=== PATIENT | male | born 1975 | race Caucasian/White ===

== ENCOUNTER 2018-03-23 10:30 | Outpatient (RCR) | payer BC, SELFPAY ==
--- NOTE | 2018-02-26 09:00 | IE_ITS ---
Date: February 26, 2018 Referring: Williams Vaughn M.D. M.D. Diagnosis: S/p right 4th and 5th CMC fusion w/bone graft SUBJECTIVE: History of Present Illness: The patient injured his 4th and 5th metacarpal when pushing a toolbox. He slipped, jamming his hand and slamming the distal aspect of the 5th metacarpal MCP joint into a metal frame. He went on to perform activities with a sledge hammer a week or two later. He miss hit with the hammer, smashing his hand into some machinery. 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 Saw Dr. Vaughn and underwent surgery on February 06 for 4th and 5th metacarpal fusion to the hamate using a wide plate with 3 screws into the hamate and 3 screws into each metacarpal. Pain Rating: At time of I.E. 3/10 and at its worst 8/10. He is not taking any pain medication for this. Pain Location: Dorsal lateral aspect of the wrist into the dorsum of the hand. Also, complains of cleveland protuberance through the palm from the 4th metacarpal , which he feels is being forced into the palm. 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 Current Level of Function: Out of work. No gripping, pushing or pulling, per M.D. orders. He is referred to P.T., primarily for ROM of the wrist and hand, as well as for swelling reduction and scar massage. Request is for gentle MCP ROM as well along with wrist and finger IP joint ROM. Social: Lives in a multi level home with his and their 3 children. Comorbidities: History of multiple left LE surgeries, otherwise unremarkable, with the exception of asthma. Falls in the last year: __[x]__ No Quality of Life: __x__ Good Standardized Measures: DASH score: __65%__ OBJECTIVE: Posture: Mesomorphic body build with mildly protracted scapulae. Observation: (behavior, atrophy, skin color, etc.) Incisions are well closed. He has a small incision over the right listers tubercle, donor site for the bone graft, as well as along the dorsum of the hand between the 4th and 5th metacarpals. No drainage. Mild scar restriction. Swelling: Volumetric measurements were taken: 530 ml left 550 ml right Noted swelling along the dorsum of the hand. The patient does have an ulnar gutter splint crossing the wrist joint, maintaining some flexion of the MCP joint. ROM: Left wrist and hand ROM is WNL through all planes. Right wrist flexion 60 , extension 50 , ulnar deviation 25 , radial deviation 10 , supination and pronation are WNL. Digits #2 through #4 MCP, PIP and DIP AROM is WNL. 5th digit MCP flexion 50 and 55 AA with pulling pain through the dorsum of the hand along the 4th and 5th metacarpal. Strength: 5/5 glenohumeral joint strength for flexion, abduction, internal and external rotation, biceps and triceps 5/5. Mortgage Processor strength was not assessed. Wrist flexion and extension 4/5 with mild pain with resisted wrist extension. Ulnar and radial deviation were not tested. Neuro: Sensation is intact to light touch throughout the dorsum of the hand. Treatment: IE: 53940 x1 Therapeutic procedure: 98009 x1 Patient Education: I.E. Instructions in a HEP of tendon gliding, wrist flexion and extension, AROM, radial and ulnar deviation and some palm hollowing exercises. Direct treatment time: 60 min. from 3:00 til 4:00 P.M. ASSESSMENT: Patient is a 42-year-old male, referred for PT services with the diagnosis of S/ p 4th & 5th metacarpal fusion. Patient presents with clinical signs and symptoms consistent with this diagnosis, as demonstrated by the following impairment level findings: impaired joint mobility, motor function, muscle performance and ROM associated with cleveland surgery Impairments are contributing to the following functional limitations: as listed above Patient is assessed as: __x__ Low 50611 ____ Moderate 08434 ____ High 85471 complexity, based on the following: History: (list): See comorbidities and social history. Examination: (list): See above for functional limitations and impairments. Presentation: Stable and uncomplicated Decision-Making: Low complexity ____ Patient requires skilled PT intervention to remediate the above functional limitations to return to: __x__ Return to full functional mobility Prognosis: ____ Excellent __x__ Good ____ Fair ____ Poor STG: __6__ weeks. 1) increase wrist flexion and extension to 70 actively 2) improve 5th digit MCP flexion on the right to greater than 70 actively 3) patient independent in HEP 4) decrease pain by 50% LTG: __12__ weeks. 1) return to work without restrictions 2) return to full, painfree functional mobility with use of right UE PLAN: Patient to be seen 2x per week, for 12 weeks, adjusting frequency of visits per patient symptoms and response to treatment. Treatment to include: Manual therapy - 27190 - scar tissue mobs, radial carpal joint mobs, A/ AAROM for wrist and hand through all planes Therapeutic exercise - 65301 - wrist and hand strengthening. Will progress with therapeutic exercises once we get approval by the surgeon. He sees him x2 weeks. The patient agrees with my POC, and is to be discharged when the above goals have been met. Thank you for this referral. Please do not hesitate to contact me with any questions or concerns regarding this patient's plan of care.
--- NOTE | 2018-03-09 14:11 | PTTR_ITS ---
DATE: 03/09/18 SUBJECTIVE: Chad states he sees the PA at his doctor's office for a recheck and xray of his hand fusion 4th/5th MCP jts. Continues to wear his ulnar sided splint. Has been working on his HEP. OBJECTIVE: Manual therapy: (05639z3). A/AAROM to the right wrist. Did perform dorsal and volar glides at a Grade 2 and 3 of the proximal radial carpal jt, as well as mobilization of the MCPs 2 through 5 at a Grade 2. Objective measurements were taken and included on an M.D. note. This is to be scanned to patient's EMR. Direct treatment time: 2:00 til 2:30 P.M. Plan: Follow up with Chad after his Ortho appointment later this week. We will progress him accordingly. MM/gc
--- NOTE | 2018-03-13 08:32 | PTTR_ITS ---
DATE: 03/13/18 OBJECTIVE: Manual therapy: (79384u1). Today Chad rec'd brief Grade 1 dorsal and volar glides to the right wrist. This was followed by PROM of the 4th and 5th digits into flexion, dorsal and volar glides of the 4th and 5th proximal inter phalangeal joints. PROM into 4th and 5th flexion and extension was also performed. Therapeutic procedures (85033z4). * x See flow sheet: gripping with foam cube, scapular rowing, prone shoulder strengthening in the planes of scaption, abduction and extension, all anti gravity without weight added. AROM of the right wrist into flexion and extension, all anti gravity. At the conclusion of this we applied ice to the right wrist x10 min. at no charge. * I did assess pinch and institutional nutrition consultant strength today; * 3 tests were performed for each, taking the average: * left pinch 18# right pinch 19# left institutional nutrition consultant 85# average right institutional nutrition consultant 71.6# average Chad felt good upon completion of today's program without significant increase in pain. Will monitor his response seeing him 1x per week leading up to his next M.D. appointment. Direct treatment time: 9:00 til 9:30 A.M. RF/sara
--- NOTE | 2018-03-20 09:00 | NT_ITS ---
03/20/18 Canc his appt RF/dl
--- NOTE | 2018-03-23 10:30 | PTTR_ITS ---
DATE: 03/23/18 Manual therapy: (74308x2). Today Chad received PROM of R hand working distal interphalangeal joint and proximal interphalangeal joint into flexion/ extension with more emphasis into flexion, passive range of wrist motion into flexion/extension, dorsal and ventral glides of R wrist grade 1. Therapeutic procedures (76190p0). Performed Therex consisting of wrist flexion/ extension with no load, all anti-gravity, active flexion/extension of digits 2- 5 and finally spent approximately 5 mins working fine motor tasks with Gemfire board performing gripping with thumb and digits 2-5. Ended treatment with cryotherapy to hand/wrist for 10 mins. Chad will be out the remainder of this week as he is bringing his son to college. He will reschedule with Richard Currie DPT prior to his appt with . Direct treatment time: 30 mins Total treatment time: 30 mins RF/dl
== END 2018-03-27 23:59 | disposition home or self-care (01) ==
LOC: PT 10:30
PROVIDERS: PCP Family Medicine; Referring Provider Nurse Practitioner Family; Visit Provider Nurse Practitioner Family
DX: S62.304D Unspecified fracture of fourth metacarpal bone, right hand, subsequent encounter for fracture with routine healing (principal); S62.306D Unspecified fracture of fifth metacarpal bone, right hand, subsequent encounter for fracture with routine healing
CPT/HCPCS: 97110; 97140; 97161

== ENCOUNTER 2019-09-27 20:10 | Outpatient (REF) | payer BC, SELFPAY ==
[2019-09-27 20:38] LABS: BUN 9 mg/dL (7-18); CREATININE 0.98 mg/dL (0.70-1.30); Calcium 8.8 mg/dL (8.5-10.1); Chloride 97 mmol/L (98-107); Glucose 91 mg/dL (74-106); Potassium 3.2 mmol/L (3.5-5.1); Sodium 140 mmol/L (136-145)
[2019-09-27 20:49] LABS: Abs Immature Grans 0.07 k/cumm (0.0-0.09); Absolute Basophil Count 0.05 k/cumm (0.0-0.2); Absolute Eosinophil Count 0.28 k/cumm (0.0-0.7); Absolute Lymphocyte Count 1.74 k/cumm (1.2-3.4); Absolute Monocyte Count 1.19 k/cumm (0.11-0.7); Absolute Neutrophil Count 2.66 k/cumm (1.2-6.7); Basophils % 0.8; Eosinophils % 4.7; HCT 46.1 % (40.0-50.0); HGB 15.9 g/dL (13.5-17.5); Immature Grans % 1.2 %; Mean Corp. HGB Concentration 34.5 g/dL (32.0-36.0); Mean Corpuscular Hemoglobin 29.1 pg (27.0-33.0); Mean Corpuscular Volume 84.4 fL (80-95); Mean Platelet Volume 12.8 fL (8.0-11.0); Monocytes % 19.9; Neutrophils % 44.4; Platelet Count 195 x1000/uL (130-400); RBC 5.46 m/cumm (4.50-6.00); RBC Distribution Width 13.9 % (11.8-14.1); White Blood Cell Count 5.99 k/cumm (4.4-10.8)
== END 2019-09-27 20:30 ==
LOC: NCHCN 20:10
PROVIDERS: PCP Family Medicine; Visit Provider Physician Assistant Medical
DX: R50.9 Fever, unspecified (principal)
CPT/HCPCS: 80048; 85025

== ENCOUNTER 2020-10-30 09:28 | Outpatient (REF) | payer BC, SELFPAY ==
[2020-10-30 15:24] LABS: Abs Immature Grans 0.03 10^3/uL (0.0-0.06); Absolute Basophil Count 0.09 10^3/uL (0.0-0.2); Absolute Eosinophil Count 0.33 10^3/uL (0.0-0.7); Absolute Lymphocyte Count 2.38 10^3/uL (1.2-3.4); Absolute Monocyte Count 0.91 10^3/uL (0.1-0.8); Absolute Neutrophil Count 5.85 10^3/uL (1.2-6.7); Basophils % 0.9; Eosinophils % 3.4; HCT 47.2 % (40.0-50.0); HGB 16.2 g/dL (13.5-17.5); Immature Grans % 0.3; Lymphocytes % 24.8; MCH 29.9 pg (27.0-33.0); MCHC 34.3 % (32.0-36.0); MCV 87.2 fL (80-95); MPV 11.8 fL (8.0-11.0); Monocytes % 9.5; Neutrophils % 61.1; Nucleated RBC 0 %; Platelet Count 252 10^3/uL (130-400); RBC 5.41 10^6/uL (4.36-5.78); RDW 12.6 % (11.8-14.1); RDW-SD 39.4 fL; WBC 9.59 10^3/uL (4.4-10.8)
[2020-10-30 15:50] LABS: ALT 55 U/L (16-63); AST 35 U/L (15-37); Albumin 4.2 g/dL (3.4-5.0); Alkaline Phosphatase 115 U/L (46-116); Anion Gap 8.3 mmol/L (3-11); BUN 8 mg/dL (7-18); Bilirubin, Total 0.9 mg/dL (0.2-1.0); CO2 30.7 mmol/L (21.0-32.0); CREATININE 0.9 mg/dL (0.70-1.30); Calcium 9.2 mg/dL (8.5-10.1); Calculated LDL 128 mg/dL (<100); Chloride 102 mmol/L (98-107); Cholesterol 206 mg/dL (<200); Glucose 104 mg/dL (74-106); HDL Cholesterol 59 mg/dL (40-60); Potassium 3.4 mmol/L (3.5-5.1); Sodium 141 mmol/L (136-145); Total Protein 8.1 g/dL (6.4-8.2); Triglyceride 97 mg/dL (<150)
== END 2020-10-30 09:29 | disposition home or self-care (01) ==
LOC: NCHCN 09:28
PROVIDERS: PCP Family Medicine; Visit Provider Physician Assistant Medical
DX: Z00.00 Encounter for general adult medical examination without abnormal findings (principal); D72.829 Elevated white blood cell count, unspecified; Z13.220 Encounter for screening for lipoid disorders
CPT/HCPCS: 80053; 80061; 85025

== ENCOUNTER 2020-11-07 18:25 | Outpatient (REF) | payer BC, SELFPAY ==
[2020-11-09 10:07] LABS: COVID-19 RT-PCR UVMMC Result Negative (Negative)
== END 2020-11-07 18:26 | disposition home or self-care (01) ==
LOC: NCHCN 18:25
PROVIDERS: PCP Family Medicine; Visit Provider Physician Assistant Medical
DX: Z20.822 Contact with and (suspected) exposure to COVID-19 (principal); R06.02 Shortness of breath
CPT/HCPCS: U0003

== ENCOUNTER 2021-03-19 11:25 | Outpatient (CLI) | payer BC, SELFPAY ==
--- NOTE | 2021-03-19 | DI.RAD_ITS ---
Exam(s) XR CHEST 2V PA LATERAL EXAM: XR CHEST 2V PA LATERAL CLINICAL HISTORY: SOB R06.02. TECHNIQUE: 2D digital imaging was performed. COMPARISON: No exams were available for comparison FINDINGS: Heart size is normal. The mediastinum is not widened. Lungs are clear. No infiltrates nor pleural effusions. There is a healed midshaft fracture of the left clavicle. Widening of the right AC joint is probably postsurgical. No fractures in the right clavicle. IMPRESSION: No acute pulmonary findings. Incidental clavicle fractures as described above. DATA REPOSITORY: RADIATION DOSE DELIVERED:
--- NOTE | 2021-03-19 16:20 | DI.VRAD_ITS ---
PROCEDURE INFORMATION: Exam: XR Chest Exam date and time: 03/19/2021 3:42 PM Age: 45 years old Clinical indication: Shortness of breath TECHNIQUE: Imaging protocol: XR of the chest. Views: 2 views. COMPARISON: No relevant prior studies available. FINDINGS: Lungs: Unremarkable. No consolidation. Pleural spaces: No pleural effusion. No pneumothorax. Heart/Mediastinum: No cardiomegaly. Bones/joints: No acute displaced rib fracture. Soft tissues: Lobulated soft tissue at the lateral aspect of the bilateral lower ribs is likely related to chest wall musculature versus external material. Correlate with physical examination findings. IMPRESSION: No acute cardiopulmonary abnormality. Dictated and Authenticated by: Niharika Benoit MD. Ordering:JOVON Renee MD
== END 2021-03-19 11:45 ==
PROVIDERS: PCP Family Medicine; Visit Provider Physician Assistant Medical
DX: R06.02 Shortness of breath (principal)
CPT/HCPCS: 71046

== ENCOUNTER 2021-03-19 15:47 | Outpatient (REF) | payer BC, SELFPAY ==
[2021-03-21 17:07] LABS: COVID-19 RT-PCR UVMMC Result Positive (Negative)
== END 2021-03-19 15:48 | disposition home or self-care (01) ==
LOC: LBN 15:47
PROVIDERS: PCP Family Medicine; Visit Provider Physician Assistant Medical
DX: Z20.822 Contact with and (suspected) exposure to COVID-19 (principal); J06.9 Acute upper respiratory infection, unspecified
CPT/HCPCS: U0003

== ENCOUNTER 2021-04-11 13:15 | Outpatient (REF) | payer BC, SELFPAY ==
[2021-04-11 20:28] LABS: ALT 58 U/L (16-63); AST 29 U/L (15-37); Albumin 3.5 g/dL (3.4-5.0); Alkaline Phosphatase 82 U/L (46-116); Anion Gap 8.5 mmol/L (3-11); BUN 8 mg/dL (7-18); CO2 29.5 mmol/L (21.0-32.0); Calcium 8.6 mg/dL (8.5-10.1); Chloride 106 mmol/L (98-107); Glucose 105 mg/dL (74-106); Potassium 3.5 mmol/L (3.5-5.1); Sodium 144 mmol/L (136-145)
== END 2021-04-11 13:16 | disposition home or self-care (01) ==
LOC: NCHCN 13:15
PROVIDERS: PCP Family Medicine; Visit Provider Physician Assistant Medical
DX: E87.6 Hypokalemia (principal); R79.89 Other specified abnormal findings of blood chemistry
CPT/HCPCS: 80053

== ENCOUNTER 2021-04-16 03:58 | Outpatient (CLI) | payer BC, SELFPAY ==
--- OUTSIDE RECORDS SUMMARY | 2021-04-16 04:00 | XMS_ITS ---
:1975 Author Organization [facility] Address [address] [facility] [address] [place] [address] Care Team Providers Name Role Phone Luan Unavailable Unavailable PROBLEMS No Known Problems ALLERGIES Substance Reaction Event Type Date Status med ? 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 Z02.89 [facility] [address] [place] [address] Dec, [employer] [place] [address] Transporta tion (DOT) examination for marilyn licence Z02.89 a nd Encounter for pre-employment e xamination Z02.1 [facility] [address] [place] [address] 1 Feb, [facility] [address] [facility] [address] [place] [address] 1 Jan, [employer] [place] [address] 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 [address] November, [place], [place] [id number] [place] [address] Aug, [place] [address] Mar, [place] [address] Oct, [place] [address] Aug, [place] [address] Dec, [place] [address] Sep, [place] [address] [employer] [address] [place] [address] Jan, [place] [address] SURVEY(WORK RELATED ONLY) V70.5 and COUNSE LING NOS V65.40 [facility] [address] [facility] [address] Jan, VASE CTOMY STATUS V26.[address] [facility] [address] [facility] [address] Dec, [facility] [place] [address] V25.40 IMMUNIZATIONS No Known Immunizations SOCIAL HISTORY Never Assessed REASON FOR REFERRAL FUNCTIONAL STATUS PLAN OF CARE Activity Details Follow Up Follow-up with PCP as previo usly scheduled Reason: VITAL SIGNS Height 68 in 2020-02-01 Weight 175.2 lbs 2020-02-01 BMI 26.64 kg/m2 2020-02-01 Temperature 98.1 degrees Fahrenheit 2020-02-01 Heart Rate 92 /min 2020-02-01 Respiratory Rate 18 /min 2020-02-01 Oximetry 98 % 2020-02-01 Blood pressure systolic 155 mm Hg 2020-02-01 Blood pressure diastolic 110 132 mm Hg 2020-02-01 MEDICATIONS Medication Instructions Dosage Frequency Start End Duration Statu s Date Date Cetirizine HCl 10 orally once a 1 tab(s) 24h Active mg day Chlorthalidone 25 orally once a 1 tab(s) 24h 30 day( s) Active mg day MULTIVITAMIN orally once a 1 cap(s) 24h 30 day(s) Ac tive Multiple Vitamins day Citalopram orally once a 1 tab(s) 24h 30 day(s) Acti ve Hydrobromide 20 mg day CeleBREX 200 mg orally once 1 cap(s) 24h 90 days Act mekhi daily PROCEDURES Procedure Date Ordered Result Body Site UA-DIPSTICK (g code 42471) February 01, 2020 ICC/WORK RELATED/DISABILITY EXAMINATION (04590) February 01, 2020 SPECIAL REPORTS February 01, 2020 VISUAL ACUITY SCREEN February 01, 2020 PURE TONE AUDIOMETRY, AIR February 01, 2020 COLOR VISION EXAMINATION February 01, 2020 RESULTS Name Result Date Reference Range UA DIPSTICK ONLY-DIAGNOSTIC 2020-02-01 Color yellow Clarity clear Specific [place] 1.015 Glucose. neg Bilirubin neg Ketones neg Blood neg PH 7.0 Protein neg Urobilinogen 0.2 Nitrite neg Leukocytes small UA DIPSTICK ONLY-with CPE/ICC 2019-01-22 COLOR yellow CLARITY SPECIFIC GRAVITY 1.015 GLUCOSE neg BILIRUBIN neg KETONES neg BLOOD neg PH 6.5 PROTEIN neg UROBILINOGEN 0.2 LEUKOCYTES neg NITRITES neg UA DIPSTICK ONLY-with CPE/ICC 2018-02-03 COLOR yellow CLARITY clear SPECIFIC GRAVITY 1.020 GLUCOSE neg BILIRUBIN neg KETONES neg BLOOD trace-intact PH 7.0 PROTEIN neg UROBILINOGEN 0.2 LEUKOCYTES trace NITRITES neg UA DIPSTICK ONLY-with CPE/ICC 2016-02-13 COLOR yellow CLARITY SPECIFIC GRAVITY 1.015 GLUCOSE neg BILIRUBIN neg KETONES neg BLOOD neg PH 7.0 PROTEIN neg UROBILINOGEN 0.2 LEUKOCYTES neg NITRITES neg UA DIPSTICK ONLY-with CPE/ICC 2014-02-24 COLOR lt yellow CLARITY SPECIFIC GRAVITY neg GLUCOSE neg BILIRUBIN neg KETONES neg BLOOD neg PH 7.0 PROTEIN neg UROBILINOGEN 0.2 LEUKOCYTES neg NITRITES neg DRUG SCREEN COLLECTION 2013-11-25 DRUG SCREEN COLLECTION 2013-09-17 DRUG SCREEN COLLECTION 2013-04-23 DRUG SCREEN COLLECTION 2012-11-20 DRUG SCREEN COLLECTION 2011-01-18 DRUG SCREEN COLLECTION 2010-10-23 DRUG SCREEN COLLECTION 2010-10-22 X ray: Ankle, left REASON FOR VISIT [facility] patient paying $125, [facility] patient paying $125, clarify expiration on [facility], [facility] -self pay-- woman called r/s 12/30, DISCLAIMER: THIS NOTE WAS CREATED USING [employer] VOICE RECOGNITION SOFTWARE. IT WAS REVIEWED FOR MAJOR CONTENT. HOWEVER, THERE MAY BE MULTIPLE SMALL DISCREPANCIES AND ERRORS DUE TO THE VOICE RECOGNITION ASPECTS OF THE SOFTWARE., [facility] -self pay, "DISCLAIMER: THIS NOTE WAS CREATEDUSING [employer]5 VOICE RECOGNITION SOFTWARE. IT WAS REVIEWED FOR MAJOR CONTENT. HOWEVER, THERE MAY BE MULTIPLE SMALL DISCREPANCIES AND ERRORS DUE TO THE VOICE RECOGNITION ASPECTS OF THE SOFTWARE., [facility], [facility] - Self Pay, DRUG SCREEN, labs, drug screen, drug screen, ICC patient paying $99.50/cx'd by pt's 02/13 AP, blood draw, drug screen, drug screen, icc, vasectomy, vasectormy consult, vasectomyconsult-r/s from 01/18, vasectomy consult / pt rescheduled for 01/20/09 Insurance Providers [facility] Health Member Patient Patient Patient Patient Patient Subscriber Subscriber Subscriber Group Insurance Plan Plan Plan Plan ID Relationship Address Phone Name Date of ID Name Date of No Type Insurance Insurance Insurance Coverage to Subscriber Address Phone Name Dates SELF PAY [address] SELF PAY self DEREK 1975 [address] [place] [address] [facility] [id number] SELF PAY self DEREK 1975 [address] [place] [address] [place] [address] [address] BLUE CROSS DEREK [id number] [facility] [address] [place] [address] [address] DEREK 1975 [id number] [place] [id number] SELF [address]Y [address] SELF PAY self DEREK 1975 AFTER BLUE [place] AFTER BLUE [facility] [id number] [address] [place] DEREK [id number] [place] [id number] OCCUPATION W[facility] ATTN OCCUPATION self DEREK 1975 [id number] [facility] [address] [facility] [address] [address] BLUE CROSS self DEREK 24 [id number] [facility] [address] [place] [address] SELF PAY self DEREK 1975 GENERAL [place] [facility] [place] [address] [address] self DEREK [id number] [place] [id number] [address] DEREK [id number] Y OTHER [place] OTHER [facility] [address] OCCUPATION WMC ATTN OCCUPATION self DEREK 1975 [id number] [facility] [address] [facility] [address] [address]-[place] [address] DEREK 1975 [id number] [place] [id number] SELF PAY [address] SELF PAY self DEREK 1975 [place] [address] INSURANCE BLUE CROSS [phone] BLUE CROSS DEREK [id number] [facility] [place] [facility] [address] [place] [id number] S[address] DEREK [id number] Y OTHER [place] Y OTHER [facility] [address] [place] [address] [place] self DEREK [id number] [facility] [id number] MEDICAL (GENERAL) HISTORY Type Description Date Surgical History 7 left knee surgeries Surgical History left ankle surgery
[2021-04-16] MEDS: Inhaler, Assist Device 1 EACH MC (09:21)
[2021-04-16] MEDS: Albuterol HFA 18 GM 200 PUFF INH IH (09:21)
--- NOTE | 2021-04-17 12:54 | W.PFT ---
Date of service: 04/16/21 Time of Service: 08:15 Pulmonary Function Test Result Requesting Provider Duchene Indications: COVID, LOPEZ Interpretation Spirometry: There is no airflow limitation. There is no bronchodilator effect. MIP, MEP, and MVV are diminished Lung Volumes: Lung volumes are normal Diffusion Capacity: Diffusion is normal Airway Pressure: Airways resistance is normal Impression Normal pulmonary function tests with isolated neuromuscular weakness, evidenced by diminished MIP/MEP/MVV. Clinical Correlation therefore is recommended.
== END 2021-04-16 03:59 | disposition home or self-care (01) ==
LOC: RT 03:58
PROVIDERS: PCP Family Medicine; Visit Provider Student in an Organized Health Care Education/Training Program
DX: U07.1 COVID-19 (principal); R06.09 Other forms of dyspnea
CPT/HCPCS: 94060; 94726; 94729

== ENCOUNTER 2022-03-01 15:55 | Outpatient (REF) | payer BC, SELFPAY ==
[2022-03-01 19:10] LABS: Anion Gap 9.5 mmol/L (3-11); BUN 9 mg/dL (7-18); CO2 27.5 mmol/L (21.0-32.0); CREATININE 1.1 mg/dL (0.70-1.30); Calcium 9.2 mg/dL (8.5-10.1); Chloride 97 mmol/L (98-107); Glucose 122 mg/dL (74-106); Potassium 3.1 mmol/L (3.5-5.1); Sodium 134 mmol/L (136-145)
== END 2022-03-01 15:56 | disposition home or self-care (01) ==
LOC: NCHCN 15:55
PROVIDERS: PCP Family Medicine; Visit Provider Physician Assistant Medical
DX: R03.0 Elevated blood-pressure reading, without diagnosis of hypertension (principal)
CPT/HCPCS: 80048

== ENCOUNTER 2022-11-15 12:25 | Outpatient (REF) | payer BC, SELFPAY ==
[2022-11-15 15:24] LABS: ALT 65 U/L (16-63); AST 48 U/L (15-37); Albumin 4.2 g/dL (3.4-5.0); Alkaline Phosphatase 87 U/L (46-116); Anion Gap 9.9 mmol/L (3-11); BUN 6 mg/dL (7-18); Bilirubin, Total 0.7 mg/dL (0.2-1.0); CO2 28.1 mmol/L (21.0-32.0); CREATININE 1.1 mg/dL (0.70-1.30); Calcium 9.1 mg/dL (8.5-10.1); Calculated LDL 63 mg/dL (<100); Chloride 104 mmol/L (98-107); Cholesterol 162 mg/dL (<200); Estimated GFR 84.37 (mL/min/1.73m2); Glucose 102 mg/dL (74-106); HDL Cholesterol 73 mg/dL (40-60); Potassium 3.9 mmol/L (3.5-5.1); Sodium 142 mmol/L (136-145); Total Protein 8.5 g/dL (6.4-8.2); Triglyceride 134 mg/dL (<150)
== END 2022-11-15 12:26 | disposition home or self-care (01) ==
LOC: NCHCN 12:25
PROVIDERS: PCP Family Medicine; Visit Provider Physician Assistant Medical
DX: Z00.00 Encounter for general adult medical examination without abnormal findings (principal); Z13.220 Encounter for screening for lipoid disorders; Z13.228 Encounter for screening for other metabolic disorders
CPT/HCPCS: 80053; 80061

== ENCOUNTER 2025-04-20 17:14 | Outpatient (REF) | payer BC, SELFPAY ==
[2025-04-20 21:07] LABS: Abs Immature Grans 0.05 10^3/uL (0.0-0.06); HCT 42.6 % (40.0-50.0); HGB 14.3 g/dL (13.5-17.5); Immature Grans % 0.5 %; MCH 29.8 pg (27.0-33.0); MCHC 33.6 % (32.0-36.0); MCV 89 fL (80-95); MPV 11.0 fL (8.0-11.0); Platelet Count 228 10^3/uL (130-400); RBC 4.80 10^6/uL (4.36-5.78); RDW 12.7 % (11.8-14.1); RDW-SD 41.5 fL; WBC 10.06 10^3/uL (4.4-10.8)
[2025-04-20 21:26] LABS: Hemoglobin A1C 5.2 % (<5.7)
[2025-04-20 21:30] LABS: ALT 65 U/L (16-63); AST 40 U/L (15-37); Albumin 4.3 g/dL (3.4-5.0); Alkaline Phosphatase 80 U/L (46-116); Anion Gap 7.3 mmol/L (3-11); BUN 11 mg/dL (7-18); Bilirubin, Total 1.0 mg/dL (0.2-1.0); CO2 32.7 mmol/L (21.0-32.0); Calcium 10.0 mg/dL (8.5-10.1); Calculated LDL 122 mg/dL (<100); Chloride 101 mmol/L (98-107); Cholesterol 203 mg/dL (<200); Estimated GFR 114.37 (mL/min/1.73m2); Glucose 103 mg/dL (74-106); HDL Cholesterol 66 mg/dL (>or=40); Potassium 4.6 mmol/L (3.5-5.1); Sodium 141 mmol/L (136-145); Total Protein 8.0 g/dL (6.4-8.2); Triglyceride 75 mg/dL (<150)
[2025-04-20 21:51] LABS: GGT 103 U/L (15-85)
[2025-04-21 19:14] LABS: Hepatitis A Antibody IgM Negative (Negative); Hepatitis C Ab w Rflx HCV PCR Negative (Negative)
== END 2025-04-20 17:15 | disposition home or self-care (01) ==
LOC: NCHCN 17:14
PROVIDERS: PCP Family Medicine; Visit Provider Physician Assistant Medical
DX: Z13.6 Encounter for screening for cardiovascular disorders (principal); Z13.1 Encounter for screening for diabetes mellitus; I10 Essential (primary) hypertension; R74.01 Elevation of levels of liver transaminase levels
CPT/HCPCS: 80053; 80061; 86704; 86709; 86803; 87340; 82977; 83036; 85025